=== PATIENT | male | born 1960 | race Caucasian/White ===

== ENCOUNTER 2023-05-06 13:12 | Outpatient (CLI) | payer BC, SELFPAY | END 2023-05-06 13:13 | disposition home or self-care (01) | LOC: FBOREF 13:13 | PROVIDERS: PCP Family Medicine; Visit Provider Family Medicine | DX: E78.5 Hyperlipidemia, unspecified (principal); I10 Essential (primary) hypertension; E11.9 Type 2 diabetes mellitus without complications; R79.89 Other specified abnormal findings of blood chemistry; Z12.5 Encounter for screening for malignant neoplasm of prostate | CPT/HCPCS: 80048; 80061; 80076; 84153 ==

== ENCOUNTER 2024-02-24 08:20 | Outpatient (CLI) | payer BC, SELFPAY | END 2024-02-24 08:21 | disposition home or self-care (01) | PROVIDERS: PCP Family Medicine; Visit Provider Family Medicine | DX: E78.2 Mixed hyperlipidemia (principal); I10 Essential (primary) hypertension; M10.9 Gout, unspecified | CPT/HCPCS: 80048; 80061; 84460; 84550 ==

== ENCOUNTER 2024-09-12 15:40 | Outpatient (CLI) | payer BC, SELFPAY | END 2024-09-12 15:41 | disposition home or self-care (01) | LOC: FBOREF 15:41 | PROVIDERS: PCP Family Medicine; Visit Provider Family Medicine | DX: Z12.5 Encounter for screening for malignant neoplasm of prostate (principal) | CPT/HCPCS: G0103 ==

== ENCOUNTER 2025-05-30 09:45 | Outpatient (CLI) | payer BC, SELFPAY | END 2025-05-30 09:46 | disposition home or self-care (01) | PROVIDERS: PCP Family Medicine; Visit Provider Family Medicine | DX: E11.9 Type 2 diabetes mellitus without complications (principal); M10.9 Gout, unspecified; E78.2 Mixed hyperlipidemia; I10 Essential (primary) hypertension; R79.89 Other specified abnormal findings of blood chemistry | CPT/HCPCS: 80048; 80061; 84460; 84550; 85025 ==